=== PATIENT | male | born 1970 ===

== ENCOUNTER 2018-04-18 14:43 | Emergency (ER) | payer BC ==
[2018-04-18 15:05] VITALS: BP 127/82
--- NOTE | 2018-04-18 15:14 | ED ---
Respiratory - HPI Summary HPI Summary: 47-year-old male presents with cough and sinus congestion for the past 6 days. He states his sinus congestion has been about the same. He states his cough got worse. He admits to postnasal drip. He denies any sore throat. No ear pain. denies any sinus pressure. No headache. No abdominal pain. No nausea and vomiting. He admits to occasional shortness breath with cough. No chest pain. Is not a smoker. denies any fevers. - History of Current Complaint Pain Intensity: 0 <Augustina Dave - Last Filed: 04/18/18 15:15> <Josselin Menezes - Last Filed: 04/18/18 17:04> - History of Current Complaint Chief Complaint: UCGeneralIllness Stated Complaint: CHEST CONGESTION Time Seen by Provider: 04/18/18 15:06 - Allergy/Home Medications Allergies/Adverse Reactions: Allergies Allergy/AdvReac Type Severity Reaction Status Date / Time No Known Allergies Allergy Verified 04/18/18 14:57 Home Medications: Home Medications Divalproex ER TAB(*) [Depakote ER TAB(*)] 5 tab PO BEDTIME 04/18/18 [History Confirmed 04/18/18] Gabapentin CAP(*) [Neurontin 300 CAP(*)] 1,200 mg PO BEDTIME 04/18/18 [History Confirmed 04/18/18] Levothyroxine TAB* [Synthroid TAB*] 75 mcg PO DAILY 04/18/18 [History Confirmed 04/18/18] Melatonin/Pyridoxine HCl (B6) [Melatonin] 1 tab PO BEDTIME 04/18/18 [History Confirmed 04/18/18] Prazosin CAP* [Minipress CAP*] 4 mg PO DAILY 04/18/18 [History Confirmed ] QUEtiapine XR TAB* [Seroquel Xr 50 MG TAB*] 100 mg PO BEDTIME 04/18/18 [History Confirmed 04/18/18] Vortioxetine Hydrobromide [Brintellix] 10 mg PO DAILY 04/18/18 [History Confirmed 04/18/18] buPROPion SR TAB* [Wellbutrin SR TAB*] 200 mg PO BID 04/18/18 [History Confirmed 04/18/18] PMH/Surg Hx/FS Hx/Imm Hx Endocrine/Hematology History: Reports: Hx Thyroid Disease Respiratory History: Denies: Hx Asthma - Surgical History Surgery Procedure, Year, and Place: inguinal hernia repair Infectious Disease History: No Infectious Disease History: Denies: Traveled Outside the [place] in Last 30 Days - Family History Known Family History: Negative: Respiratory Disease - Social History Alcohol Use: None Substance Use Type: Reports: None Smoking Status (MU): Never Smoked Tobacco <Augustina Dave - Last Filed: 04/18/18 15:15> Review of Systems Negative: Fever Positive: Nasal Discharge Negative: Chest Pain Positive: Cough. Negative: Shortness Of Breath All Other Systems Reviewed And Are Negative: Yes <Augustina Dave - Last Filed: 04/18/18 15:15> Physical Exam Triage Information Reviewed: Yes Vital Signs On Initial Exam: Initial Vitals Temp Pulse Resp BP Pulse Ox 98.2 F 100 20 127/82 96 04/18/18 15:01 04/18/18 15:01 04/18/18 15:01 04/18/18 15:01 04/18/18 15:01 Vital Signs Reviewed: Yes Appearance: Positive: Well-Appearing Skin: Positive: Warm, Dry Head/Face: Positive: Normal Head/Face Inspection Eyes: Positive: Normal, EOMI, TRUDY, Conjunctiva Clear ENT: Positive: Normal ENT inspection, Pharynx normal, Nasal congestion, TMs normal. Negative: Sinus tenderness Neck: Positive: Supple, Nontender, No Lymphadenopathy Respiratory/Lung Sounds: Positive: Clear to Auscultation, Breath Sounds Present Cardiovascular: Positive: Normal, RRR Abdomen Description: Positive: Nontender, Soft Bowel Sounds: Positive: Present Musculoskeletal: Positive: Normal Neurological: Positive: Normal Psychiatric: Positive: Normal <Augustina Dave - Last Filed: 04/18/18 15:15> Vital Signs On Initial Exam: Initial Vitals Temp Pulse Resp BP Pulse Ox 98.2 F 100 20 127/82 96 04/18/18 15:01 04/18/18 15:01 04/18/18 15:01 04/18/18 15:01 04/18/18 15:01 <Josselin Menezes - Last Filed: 04/18/18 17:04> Diagnostics - Vital Signs Vital Signs Temp Pulse Resp BP Pulse Ox 04/18/18 15:01 98.2 F 100 20 127/82 96 <JolieAugustina - Last Filed: 04/18/18 15:15> - Vital Signs Vital Signs Temp Pulse Resp BP Pulse Ox 04/18/18 15:01 98.2 F 100 20 127/82 96 <Josselin Menezes - Last Filed: 04/18/18 17:04> Disposition - Course Course Of Treatment: 47-year-old male presents with cough and sinus congestion for the past 6 days. He states his sinus congestion has been about the same. He states his cough got worse. He admits to postnasal drip. He denies any sore throat. No ear pain. denies any sinus pressure. No headache. No abdominal pain. No nausea and vomiting. He admits to occasional shortness breath with cough. No chest pain. Is not a smoker. On exam nontender sinuses. Pharynx normal. Lungs clear to auscultation. We'll treat with Albuterol tessalon, and Prednisone. will treat as viral illness. Patient Understands and Agrees with Plan. - Differential Dx - Cardiopulmonary Differential Diagnoses - Cardiopulmonary: Bronchitis, Influenza, Lower Resp Infection <Augustina Dave - Last Filed: 04/18/18 15:15> <Josselin Menezes - Last Filed: 04/18/18 17:04> - Diagnoses Provider Diagnoses: Upper respiratory infection Discharge - Sign-Out/Discharge Documenting (check all that apply): Discharge/Admit/Transfer - Billing Disposition and Condition Condition: GOOD Disposition: Home <Augustina Dave - Last Filed: 04/18/18 15:15> - Billing Disposition and Condition Condition: GOOD Disposition: Home <Josselin Menezes - Last Filed: 04/18/18 17:04> - Discharge Plan Condition: Good Disposition: HOME Prescriptions: Albuterol HFA INHALER* [Ventolin HFA Inhaler*] 1 puff INH Q4H PRN #1 mdi PRN Reason: Cough Benzonatate CAP* [Tessalon 100 MG CAP*] 100 mg PO TID PRN #21 cap PRN Reason: Cough predniSONE TAB* [Deltasone TAB*] 50 mg PO DAILY #5 tab Patient Education Materials: Upper Respiratory Infection (ED) Referrals: [facility] [place] [facility] [Outside] Additional Instructions: Use Tessalon three times a day for cough Use inhaler one puff every 4 hours for cough as needed Take steroid once a day for 5 days Use saline in the nose Use humidifier or place warm bowls of water around the room for cough Cough can last up to 4 weeks establish care with primary care physician in 5 days Return to ED if develop any new or worsening symptoms Attestation Statement User Type: Provider - I was available for consult. This patient was seen by the [facility]. The patient was not presented to, seen by, or examined by me. -Domingo <Josselin Menezes - Last Filed: 04/18/18 17:04>
== END 2018-04-18 15:26 | disposition home or self-care (01) ==
LOC: UCEAST 14:43
DX: J06.9 Acute upper respiratory infection, unspecified (principal)
CPT/HCPCS: 99212; G0463